=== PATIENT | male | born 1970 ===

== ENCOUNTER 2017-08-09 09:50 | Emergency (ER) | payer SELFPAY ==
[2017-08-09 09:56] VITALS: TEMP 98.1
--- NOTE | 2017-08-09 10:06 | C.PDOC ---
History Of Present Illness 46M c/o pain in the top of his right shoulder after a fall yesterday. he was carrying boxes and tripped and fell forward and hit his shoulder on a box. has not tried anything for pain. hx old collar bone fx on right side years ago. Time Seen by Provider: 08/09/17 09:57 Chief Complaint (Nursing): Upper Extremity Problem/Injury Past Medical History Vital Signs: Last Vital Signs Temp 98.1 F 08/09/17 09:54 Pulse 65 08/09/17 09:54 Resp 16 08/09/17 09:54 BP 125/80 08/09/17 09:54 Pulse Ox 100 08/09/17 10:10 Family History: States: Other Other Family History: nc - Social History Hx Alcohol Use: No Hx Substance Use: No - Immunization History Hx Tetanus Toxoid Vaccination: No Hx Influenza Vaccination: No Hx Pneumococcal Vaccination: No Review Of Systems Constitutional: Negative for: Fever Cardiovascular: Negative for: Chest Pain Respiratory: Negative for: Shortness of Breath Gastrointestinal: Negative for: Nausea, Vomiting Musculoskeletal: Negative for: Neck Pain Neurological: Negative for: Weakness, Numbness, Headache Physical Exam - Physical Exam Appears: Well, Non-toxic, No Acute Distress Skin: Warm, Dry Head: Atraumatic Extremity: No Deformity, Other (ttp over right AC joint. pain w abduction of shoulder. negative lift off test. ) Pulses: Right Radial: Normal Neurological/Psych: Oriented x3, Normal Motor, Normal Sensation, Other (no focal deficit) ED Course And Treatment O2 Sat by Pulse Oximetry: 100 Medical Decision Making Medical Decision Making: xr right shoulder- no acute fracture Disposition - Disposition Disposition: HOME/ ROUTINE Disposition Time: 10:36 Condition: GOOD Forms: [facility] (Greek) - Clinical Impression Clinical Impression: Shoulder pain
[2017-08-09 10:50] VITALS: BP 138/72; PULSE 72; RESP 17; O2SAT 98
--- NOTE | 2017-08-09 13:53 | RAD ---
PROCEDURE: Radiographs of the Right Shoulder HISTORY: fall pain COMPARISON: No prior. FINDINGS: BONES: Normal. No fracture. 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 SOFT TISSUES: Normal. 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 Minor DJD right acromioclavicular joint.
== END 2017-08-09 10:54 | disposition home or self-care (01) ==
LOC: C.ER 09:50
DX: M25.511 Pain in right shoulder (principal)

== ENCOUNTER 2018-05-17 19:11 | Emergency (ER) | payer SELFPAY ==
[2018-05-17 19:18] VITALS: BP 118/80; PULSE 69; TEMP 98.8
[2018-05-17 19:35] VITALS: O2SAT 98
--- NOTE | 2018-05-17 19:49 | C.PDOC ---
History Of Present Illness 47 year old male presents to the emergency department with complaints of pain to the right knee for one week. Patient denies trauma, but reports a past surgical history of arthroscopic knee surgery in the past. Patient states that he walks a lopt and climbs lot of stairs as [employer] employee and pain is worse with ambulation. He denies swelling, weakness, or numbness at the right lower extremity. Time Seen by Provider: 05/17/18 19:23 Chief Complaint (Nursing): Lower Extremity Problem/Injury History Per: Patient History/Exam Limitations: no limitations Onset/Duration Of Symptoms: Other (1 week) Current Symptoms Are (Timing): Still Present - Knee Currently Unable To: Other (ambulate without pain) Past Medical History Reviewed: Historical Data, Nursing Documentation, Vital Signs Vital Signs: Last Vital Signs Temp 98.8 F 05/17/18 19:15 Pulse 69 05/17/18 19:15 Resp 20 05/17/18 19:59 BP 118/80 05/17/18 19:15 Pulse Ox 98 05/17/18 20:01 - Medical History PMH: No Chronic Diseases Other Surgeries: Arthroscopic right knee surgery Family History: States: Unknown Family Hx - Social History Hx Alcohol Use: No Hx Substance Use: No - Immunization History Hx Tetanus Toxoid Vaccination: No Hx Influenza Vaccination: No Hx Pneumococcal Vaccination: No Review Of Systems Except As Marked, All Systems Reviewed And Found Negative. Musculoskeletal: Positive for: Leg Pain (right knee) Neurological: Negative for: Weakness, Numbness Physical Exam - Physical Exam Appears: Non-toxic, No Acute Distress Skin: Warm, Dry Head: Atraumatic, Normacephalic Eye(s): bilateral: Normal Inspection Neck: Normal, Supple Chest: Symmetrical Extremity: Normal ROM, Tenderness (mild tenderness to palpation of Rt knee- anteriorly), No Pedal Edema, No Calf Tenderness, No Deformity, No Swelling, Other (no erythema, no effusion present to the right knee. Surgical scars present at the right anterior knee. ) Neurological/Psych: Oriented x3, Normal Speech, Normal Cognition, Other (no focal deficits) ED Course And Treatment O2 Sat by Pulse Oximetry: 98 (RA) Pulse Ox Interpretation: Normal Progress Note: Recommend NSAID, knee brace . Advised to follow-up with an orthopedic physician. Disposition Counseled Patient/Family Regarding: Diagnosis, Need For Followup, Rx Given - Disposition Referrals: [facility] [Outside] Alvin Guerrero III, MD [Staff Provider] - Disposition: HOME/ ROUTINE Disposition Time: 19:47 Condition: STABLE Additional Instructions: Use knee brace as needed for support Take motrin or advil for pain Apply warm compress/ May alternate with cold compress Follow upwith Orthopedist Return to ER if worse Instructions: Knee Pain (DC) Forms: [facility] (Hebrew), Work Excuse - Clinical Impression Clinical Impression: Right knee pain - 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 - Scribe Statement The provider has reviewed the documentation as recorded by the Scribe (Maninder Wellsvi) All medical record entries made by the Scribe were at my direction and personally dictated by me. I have reviewed the chart and agree that the record accurately reflects my personal performance of the history, physical exam, medical decision making, and the department course for this patient. I have also personally directed, reviewed, and agree with the discharge instructions and disposition.
[2018-05-17 20:00] VITALS: RESP 20
== END 2018-05-17 19:59 | disposition home or self-care (01) ==
LOC: C.ER 19:11
DX: M25.561 Pain in right knee (principal)

== ENCOUNTER 2018-09-11 09:26 | Emergency (ER) | payer OTHER ==
[2018-09-11 09:37] VITALS: BP 119/83; PULSE 66; RESP 18; TEMP 98.2; O2SAT 98
[2018-09-11] MEDS ORDERED: PROPARACAINE/FLUORESCEIN SOD 100 DROP/5 ML BOTTLE ONE (10:03)
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
== END 2018-09-11 10:30 | disposition home or self-care (01) ==
LOC: C.ER 09:26
DX: S00.11XA Contusion of right eyelid and periocular area, initial encounter (principal); W20.8XXA Other cause of strike by thrown, projected or falling object, initial encounter